=== PATIENT | male | born 1995 | race Caucasian/White ===

== ENCOUNTER 2024-04-26 12:40 | Outpatient (CLI) | payer OTHER, SELFPAY ==
--- NOTE | ~2024-04-26 | XR_ITS ---
XR knee RT min 4V Ordering provider: Jim Goodwin MD History: . rt knee pain x 2 months, posterior, medial knot/swelling . Comparison: None. FINDINGS: BONES: No acute fracture or dislocation. JOINT SPACES: Normal. SOFT TISSUES: Normal. IMPRESSION: No acute osseous abnormality right knee. Reviewed, dictated and finalized at location A.
== END 2024-04-26 12:41 | disposition home or self-care (01) ==
PROVIDERS: Visit Provider Orthopaedic Surgery
DX: M25.561 Pain in right knee (principal)
CPT/HCPCS: 73564